=== PATIENT | female | born 1990 | race Caucasian/White ===

== ENCOUNTER 2018-02-01 09:46 | Emergency (ER) | payer OTHER, MEDICAID ==
[~2018-02-01] VITALS: Ht 152.4 cm; Wt 72.6 kg
[~2018-02-01 09:46] MED LIST: ACETAMINOPHEN-1 EAC1 PO; AFRIN15 ML NS; ALBUTEROL2.5 MG/0.5 INH; AMOXICILLIN500 M1 PO; BUTALB-APAP-CA1 EACH PO; CEPHALEXIN 500500 M3 PO; CIPROFLOXACIN500 M1 PO; HYDROCODONE-AP1 EAC6 PO; IBUPROFEN 800800 M1 PO; MEDROLDOSEPACK PO; MG217 PSORIASI107 GM TP; NOHOMEMEDICATIONS; NORCO 5-325 TA1 EAC1 PO; NORCO 5-325 TA1 EACH PO; ONDANSETRON HCL4 M2 PO; PREDNISONE 20 M20 M1 PO; PREDNISONE 20 M20 MG PO; PRENATABS RX T1 EAC1; PROAIR HFA8.5 GM INH; PROMETHAZINE-C120 ML PO; PYRIDIUM200 MG PO; VENTOLIN HFA 1818 GM INH; ZPAK PO
[2018-02-01] MEDS ORDERED: ULTRAM 50MG TAB50 MG PO (09:58)
[2018-02-01] MEDS ORDERED: AMOXICILLIN 50500 MG PO (09:58)
[2018-02-01 10:10] VITALS: BP 141/91
== END 2018-02-01 10:11 | disposition home or self-care (01) ==
LOC: M.ERS 09:46
DX: K02.9 Dental caries, unspecified (principal); J45.909 Unspecified asthma, uncomplicated; F17.210 Nicotine dependence, cigarettes, uncomplicated

== ENCOUNTER 2019-05-24 21:16 | Emergency (ER) | payer OTHER ==
[~2019-05-24] VITALS: Ht 152.4 cm; Wt 81.7 kg
[~2019-05-24 21:16] MED LIST changes: +AMOXICILLIN 50500 MG PO; +ULTRAM 50MG TAB50 MG PO
[2019-05-24 23:49] LABS: URINE BILIRUBIN NEGATIVE (Negative); URINE BLOOD NEGATIVE (Negative); URINE CLARITY CLEAR; URINE COLOR YELLOW; URINE GLUCOSE-RANDOM NEGATIVE (Negative); URINE KETONES NEGATIVE (Negative); URINE LEUKOCYTES NEGATIVE (Negative); URINE NITRITE NEGATIVE (Negative); URINE PROTEIN NEGATIVE (Negative); URINE UROBILINOGEN 0.2 E.U./dl (0.2-1.0)
[2019-05-25] MEDS ORDERED: KEFLEX500 M2 PO (01:06)
[2019-05-25] MEDS ORDERED: PREDNISONE50 MG PO (01:06)
[2019-05-25 01:57] VITALS: BP 119/71
== END 2019-05-25 01:59 | disposition home or self-care (01) ==
LOC: M.ERS 21:16
PROVIDERS: Personal Emergency Response Attendant
DX: L03.311 Cellulitis of abdominal wall (principal); J45.909 Unspecified asthma, uncomplicated; F17.210 Nicotine dependence, cigarettes, uncomplicated

== ENCOUNTER 2020-03-01 15:31 | Emergency (ER) | payer OTHER ==
[~2020-03-01] VITALS: Ht 152.4 cm; Wt 71.7 kg
[~2020-03-01 15:31] MED LIST changes: +KEFLEX500 M2 PO; +PREDNISONE50 MG PO
[2020-03-01] MEDS ORDERED: KEFLEX500 M1 PO (15:42)
[2020-03-01 16:44] LABS: ABSOLUTE BASOPHILS 0.1 thou/uL (0.0-0.2); ABSOLUTE EOSINOPHILS 0.3 thou/uL (0.0-0.7); ABSOLUTE LYMPHOCYTES 2.8 thou/uL (0.8-5.3); ABSOLUTE MONOCYTES 0.6 thou/uL (0.0-1.2); ABSOLUTE NEUTROPHILS 6.5 thou/uL (1.6-8.1); BASOPHILS 0.9 %; EOSINOPHILS 3.3 %; HEMATOCRIT 40.5 % (37.0-47.0); HEMOGLOBIN 14.1 gm/dL (12.0-15.0); LYMPHOCYTES 27.2 %; MCH 30.2 pg (26.0-34.0); MCHC 34.9 g/dL (28.0-37.0); MCV 86.7 fL (80.0-100.0); MPV 9.6 fl. (7.2-11.1); NUCLEATED RBCS 0 /100WBC; PLATELET COUNT* 202 thou/uL (150-400); POLYS 62.6 %; RBC 4.67 mil/uL (4.20-5.00); RDW-CV 13.8 % (10.5-14.5); WBC 10.4 thou/uL (4.0-11.0)
[2020-03-01 16:52] LABS: CALCIUM 8.8 mg/dL (8.5-10.1); POTASSIUM 4.1 mmol/L (3.5-5.1)
[2020-03-01 16:57] LABS: ALBUMIN 3.8 g/dL (3.4-5.0); TOTAL BILIRUBIN 0.4 mg/dL (<0.1-1.0); TOTAL PROTEIN 7.9 g/dL (6.4-8.2)
[2020-03-01] MEDS ORDERED: VENTOLIN HFA 1818 GM INH (17:28)
[2020-03-01] MEDS ORDERED: NAPROSYN500 MG PO (17:28)
[2020-03-01] MEDS ORDERED: DOXYCYCLINE 10100 MG PO (17:28)
[2020-03-01 17:49] VITALS: BP 134/70
--- NOTE | 2020-03-02 13:17 | EKG ---
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 03/02/20 1316 1627 1627 Juan Payne MD, [facility] /EPI
== END 2020-03-01 17:50 | disposition home or self-care (01) ==
LOC: M.ERS 15:31
PROVIDERS: Nurse Practitioner Family
DX: J18.1 Lobar pneumonia, unspecified organism (principal); Z20.828 Contact with and (suspected) exposure to other viral communicable diseases; J45.909 Unspecified asthma, uncomplicated

== ENCOUNTER 2020-05-12 14:41 | Emergency (ER) | payer OTHER ==
[~2020-05-12] VITALS: Ht 152.4 cm; Wt 72.6 kg
[~2020-05-12 14:41] MED LIST changes: +DOXYCYCLINE 10100 MG PO; +KEFLEX500 M1 PO; +NAPROSYN500 MG PO
[2020-05-12 15:39] LABS: URINE BILIRUBIN NEGATIVE (Negative); URINE BLOOD NEGATIVE (Negative); URINE CLARITY CLEAR; URINE COLOR YELLOW; URINE GLUCOSE-RANDOM NEGATIVE (Negative); URINE KETONES NEGATIVE (Negative); URINE LEUKOCYTES-REFLEX 1+ (Negative); URINE NITRITE-REFLEX NEGATIVE (Negative); URINE PROTEIN NEGATIVE (Negative); URINE UROBILINOGEN 0.2 E.U./dl (0.2-1.0)
[2020-05-12 15:53] LABS: BACTERIA-REFLEX 1-9 Few /HPF (None Seen); MUCUS None Seen strn/LPF (None Seen); SQUAMOUS >10 Many /LPF (0-3); URINE WBC-REFLEX 0-5 Rare /HPF (0-5)
[2020-05-12 15:54] LABS: CASTS None Seen /LPF (None Seen); CRYSTALS None Seen /LPF (None Seen); URINE RBC None Seen /HPF (0-2)
[2020-05-12] MEDS ORDERED: AMOXICILLIN 50500 MG PO (16:05)
[2020-05-12 16:12] VITALS: BP 122/81
== END 2020-05-12 16:13 | disposition home or self-care (01) ==
LOC: M.ERS 14:41
PROVIDERS: Nurse Practitioner Family
DX: J02.0 Streptococcal pharyngitis (principal); Z20.828 Contact with and (suspected) exposure to other viral communicable diseases; J45.909 Unspecified asthma, uncomplicated; F17.210 Nicotine dependence, cigarettes, uncomplicated

== ENCOUNTER 2020-07-21 18:40 | Emergency (ER) | payer OTHER ==
[~2020-07-21] VITALS: Ht 152.4 cm; Wt 68.0 kg
[2020-07-21 19:25] LABS: ABSOLUTE BASOPHILS 0.1 thou/uL (0.0-0.2); ABSOLUTE EOSINOPHILS 0.2 thou/uL (0.0-0.7); ABSOLUTE LYMPHOCYTES 3.4 thou/uL (0.8-5.3); ABSOLUTE MONOCYTES 0.5 thou/uL (0.0-1.2); ABSOLUTE NEUTROPHILS 6.7 thou/uL (1.6-8.1); BASOPHILS 0.7 %; EOSINOPHILS 1.8 %; HEMATOCRIT 37.5 % (37.0-47.0); HEMOGLOBIN 12.9 gm/dL (12.0-15.0); LYMPHOCYTES 31.4 %; MCH 29.6 pg (26.0-34.0); MCHC 34.3 g/dL (28.0-37.0); MCV 86.1 fL (80.0-100.0); MONOCYTES 4.7 %; MPV 8.5 fl. (7.2-11.1); NUCLEATED RBCS 0 /100WBC; PLATELET COUNT* 201 thou/uL (150-400); POLYS 61.4 %; RBC 4.35 mil/uL (4.20-5.00); RDW-CV 13.2 % (10.5-14.5); WBC 10.9 thou/uL (4.0-11.0)
[2020-07-21 19:41] LABS: ALBUMIN 3.7 g/dL (3.4-5.0); CALCIUM 8.9 mg/dL (8.5-10.1); CREATININE 0.9 mg/dL (0.6-1.3); MAGNESIUM 2.3 mg/dL (1.8-2.4); POTASSIUM 3.8 mmol/L (3.5-5.1); TOTAL BILIRUBIN 0.3 mg/dL (<0.1-1.0); TOTAL PROTEIN 6.9 g/dL (6.4-8.2)
[2020-07-21 20:00] VITALS: BP 109/67
--- NOTE | 2020-07-22 10:42 | EKG ---
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 /EPI
== END 2020-07-21 20:54 | disposition home or self-care (01) ==
LOC: M.ERS 18:40
PROVIDERS: Emergency Medicine
DX: R07.89 Other chest pain (principal); Z20.828 Contact with and (suspected) exposure to other viral communicable diseases; F17.210 Nicotine dependence, cigarettes, uncomplicated; J45.909 Unspecified asthma, uncomplicated

== ENCOUNTER 2020-10-23 18:30 | Emergency (ER) | payer OTHER ==
[~2020-10-23] VITALS: Ht 152.4 cm; Wt 81.6 kg
[2020-10-23 19:23] LABS: ABSOLUTE EOSINOPHILS 0.2 thou/uL (0.0-0.7); ABSOLUTE LYMPHOCYTES 3.1 thou/uL (0.8-5.3); ABSOLUTE MONOCYTES 0.9 thou/uL (0.0-1.2); ABSOLUTE NEUTROPHILS 10.4 thou/uL (1.6-8.1); BASOPHILS 0.3 %; EOSINOPHILS 1.3 %; HEMATOCRIT 39.1 % (37.0-47.0); HEMOGLOBIN 13.1 gm/dL (12.0-15.0); LYMPHOCYTES 21.3 %; MCH 29.2 pg (26.0-34.0); MCHC 33.6 g/dL (28.0-37.0); MONOCYTES 6.2 %; MPV 8.1 fl. (7.2-11.1); NUCLEATED RBCS 0 /100WBC; PLATELET COUNT* 203 thou/uL (150-400); POLYS 70.9 %; RBC 4.49 mil/uL (4.20-5.00); WBC 14.7 thou/uL (4.0-11.0)
[2020-10-23 19:31] LABS: CALCIUM 10.1 mg/dL (8.5-10.1); CREATININE 0.7 mg/dL (0.6-1.3); POTASSIUM 3.8 mmol/L (3.5-5.1)
[2020-10-23] MEDS ORDERED: CLEOCIN HCL300 MG PO (20:46)
[2020-10-23] MEDS ORDERED: HYDROCODON-ACE1 EAC8 PO (20:46)
[2020-10-23 21:04] VITALS: BP 125/70
== END 2020-10-23 21:04 | disposition home or self-care (01) ==
LOC: M.ERS 18:30
PROVIDERS: Emergency Medicine Emergency Medical Services
DX: K12.2 Cellulitis and abscess of mouth (principal); K08.89 Other specified disorders of teeth and supporting structures; F17.210 Nicotine dependence, cigarettes, uncomplicated; J45.909 Unspecified asthma, uncomplicated

== ENCOUNTER 2021-04-24 12:48 | Emergency (ER) | payer OTHER ==
[~2021-04-24] VITALS: Ht 152.4 cm; Wt 86.2 kg
[~2021-04-24 12:48] MED LIST changes: +CLEOCIN HCL300 MG PO; +HYDROCODON-ACE1 EAC8 PO
[2021-04-24] MEDS ORDERED: PREDNISONE 20 M20 M1 PO (13:50)
[2021-04-24] MEDS ORDERED: ZPAK PO (13:50)
[2021-04-24] MEDS ORDERED: PROAIR HFA8.5 GM INH (14:05)
[2021-04-24 14:13] VITALS: BP 125/70
== END 2021-04-24 14:13 | disposition home or self-care (01) ==
LOC: M.ERS 12:48
DX: J45.909 Unspecified asthma, uncomplicated (principal); Z20.822 Contact with and (suspected) exposure to COVID-19; F17.210 Nicotine dependence, cigarettes, uncomplicated; Z98.890 Other specified postprocedural states

== ENCOUNTER 2021-06-16 13:59 | Emergency (ER) | payer OTHER ==
[~2021-06-16] VITALS: Ht 152.4 cm; Wt 86.2 kg
[2021-06-16 15:12] LABS: INFLUENZA A ANTIGEN Negative (Negative); INFLUENZA B ANTIGEN Negative (Negative)
[2021-06-16] MEDS ORDERED: BUTALB-APAP-CA1 EACH PO (15:44)
[2021-06-16 16:09] VITALS: BP 134/92
== END 2021-06-16 16:10 | disposition home or self-care (01) ==
LOC: M.ERS 13:59
PROVIDERS: Physician Assistant
DX: R51.9 Headache, unspecified (principal); Z20.822 Contact with and (suspected) exposure to COVID-19; J45.909 Unspecified asthma, uncomplicated; F17.210 Nicotine dependence, cigarettes, uncomplicated